=== PATIENT | female | born 1940 | race Two or more races ===

== ENCOUNTER 2023-04-03 10:46 | Emergency (ER) | payer OTHER ==
[~2023-04-03] VITALS: Ht 154.9 cm; Wt 54.4 kg
[2023-04-03] MEDS ORDERED: COZAAR25 MG PO (14:48)
== END 2023-04-03 14:59 | disposition home or self-care (01) ==
LOC: ER 10:46
PROVIDERS: General Practice
DX: I10 Essential (primary) hypertension (principal); H57.89 Other specified disorders of eye and adnexa; M19.90 Unspecified osteoarthritis, unspecified site; E78.00 Pure hypercholesterolemia, unspecified